=== PATIENT | female | born 2000 | race Caucasian/White ===

== ENCOUNTER 2018-09-23 12:44 | Emergency (ER) | payer OTHER ==
[~2018-09-23] VITALS: Ht 172.7 cm; Wt 115.7 kg
[2018-09-23] MEDS ORDERED: LOPRESSOR50 PO (12:50)
[2018-09-23] MEDS ORDERED: PRANDIN1 MG PO (12:50)
[2018-09-23] MEDS ORDERED: IBUPROFEN 600600 M1 PO (13:30)
[2018-09-23 14:18] VITALS: BP 151/74
== END 2018-09-23 14:05 | disposition home or self-care (01) ==
LOC: EDBD 12:44 → ER 12:44
DX: S83.92XA Sprain of unspecified site of left knee, initial encounter (principal); W18.39XA Other fall on same level, initial encounter; Y93.89 Activity, other specified; Y92.511 Restaurant or cafe as the place of occurrence of the external cause; Y99.0 Civilian activity done for income or pay